=== PATIENT | male | born 1950 | race Caucasian/White ===

== ENCOUNTER 2018-10-18 07:44 | Outpatient (CLI) | payer OTHER | END 2018-10-18 23:59 | disposition home or self-care (01) | LOC: PETCFH 07:44 | PROVIDERS: ATTEND Nurse Practitioner | DX: R91.8 Other nonspecific abnormal finding of lung field (principal); I25.10 Atherosclerotic heart disease of native coronary artery without angina pectoris; N28.1 Cyst of kidney, acquired | CPT/HCPCS: 78815; A9552 ==